=== PATIENT | female | born 1960 | race Two or more races ===

== ENCOUNTER 2019-12-25 12:45 | Outpatient (CLI) | payer OTHER ==
[2019-12-25] MEDS ORDERED: FLONASE16 GM NASAL (14:20)
[2019-12-25] MEDS ORDERED: NEILMED SINUS1 EAC1 NASAL (14:21)
[2019-12-25] MEDS ORDERED: ZYRTEC10 M3 PO (14:22)
== END 2019-12-25 16:28 | disposition home or self-care (01) ==
LOC: OFIC 805 12:45
DX: R05 Cough (principal); R09.81 Nasal congestion; R07.0 Pain in throat

== ENCOUNTER 2020-10-15 13:41 | Outpatient (CLI) | payer OTHER ==
[~2020-10-15 13:41] MED LIST: FLONASE16 GM NASAL; NEILMED SINUS1 EAC1 NASAL; ZYRTEC10 M3 PO
== END 2020-10-15 13:50 | disposition home or self-care (01) ==
LOC: RAD 13:41
PROVIDERS: ATTEND Orthopaedic Surgery
DX: M25.512 Pain in left shoulder (principal)

== ENCOUNTER 2020-10-27 14:04 | Outpatient (CLI) | payer OTHER | END 2020-10-27 14:15 | disposition home or self-care (01) | LOC: RAD 14:04 | PROVIDERS: ATTEND Physical Medicine & Rehabilitation | DX: M75.32 Calcific tendinitis of left shoulder (principal) ==

== ENCOUNTER 2020-11-10 12:50 | Outpatient (CLI) | payer OTHER | END 2020-11-10 12:55 | disposition home or self-care (01) | LOC: NUCLEAR 12:50 | PROVIDERS: ATTEND Orthopaedic Surgery | DX: M81.0 Age-related osteoporosis without current pathological fracture (principal) ==

== ENCOUNTER 2021-03-04 08:00 | Outpatient (CLI) | payer OTHER | END 2021-03-04 08:30 | disposition home or self-care (01) | LOC: PPH VACUNA 08:00 | DX: Z23 Encounter for immunization (principal) ==

== ENCOUNTER 2021-03-23 08:00 | Outpatient (CLI) | payer OTHER | END 2021-03-23 08:30 | disposition home or self-care (01) | LOC: PPH VACUNA 08:00 | DX: Z23 Encounter for immunization (principal) ==

== ENCOUNTER 2021-10-20 08:19 | Outpatient (CLI) | payer OTHER | END 2021-10-20 08:34 | disposition home or self-care (01) | LOC: SONOGRAMA 08:19 | PROVIDERS: ATTEND Otolaryngology | DX: N21.9 Calculus of lower urinary tract, unspecified (principal); R22.1 Localized swelling, mass and lump, neck ==

== ENCOUNTER 2021-11-27 08:19 | Outpatient (CLI) | payer OTHER | END 2021-11-27 08:28 | disposition home or self-care (01) | LOC: TOM 08:19 | PROVIDERS: ATTEND Otolaryngology | DX: R22.1 Localized swelling, mass and lump, neck (principal) ==

== ENCOUNTER 2022-11-10 08:28 | Outpatient (CLI) | payer OTHER | END 2022-11-10 08:41 | disposition home or self-care (01) | LOC: SONOGRAMA 08:28 | PROVIDERS: ATTEND Anesthesiology | DX: M25.511 Pain in right shoulder (principal); M25.512 Pain in left shoulder ==

== ENCOUNTER 2023-11-22 09:07 | Outpatient (CLI) | payer OTHER ==
[~2023-11-22 09:07] MED LIST changes: +ADVIL; +NABUMETONE750 MG PO; +TAMS0.4C PO; +VOLTAREN ARTHRI20 GM TOP
== END 2023-11-22 09:15 | disposition home or self-care (01) ==
LOC: SONOGRAMA 09:07
PROVIDERS: ATTEND Internal Medicine
DX: E04.2 Nontoxic multinodular goiter (principal); R22.1 Localized swelling, mass and lump, neck

== ENCOUNTER 2024-12-31 14:21 | Outpatient (CLI) | payer OTHER | END 2024-12-31 14:22 | disposition home or self-care (01) | LOC: EKG 14:21 | PROVIDERS: ATTEND Internal Medicine | DX: Z01.818 Encounter for other preprocedural examination (principal) ==

== ENCOUNTER 2024-12-31 14:58 | Outpatient (CLI) | payer OTHER | END 2024-12-31 15:10 | disposition home or self-care (01) | LOC: RAD 14:58 | PROVIDERS: ATTEND Ophthalmology | DX: R07.89 Other chest pain (principal) ==

== ENCOUNTER 2025-03-14 08:04 | Outpatient (CLI) | payer OTHER | END 2025-03-14 08:08 | disposition home or self-care (01) | LOC: MAMO-SONO 08:04 | PROVIDERS: ATTEND Obstetrics & Gynecology | DX: N60.11 Diffuse cystic mastopathy of right breast (principal); N60.12 Diffuse cystic mastopathy of left breast ==

== ENCOUNTER → 2025-04-02 08:04 | Outpatient (CLI) | payer OTHER | END | disposition home or self-care (01) | LOC: NUCLEAR 08:04 | PROVIDERS: ATTEND Obstetrics & Gynecology | DX: M81.0 Age-related osteoporosis without current pathological fracture (principal) ==